=== PATIENT | male | born 1985 | race Hispanic/Latino ===

== ENCOUNTER 2022-08-25 17:15 | Emergency (ER) | payer SELFPAY ==
[2022-08-25 18:16] LABS: #Basophils 0.1 10x3/uL (0.0-0.2); #Eosinphils 0.2 10x3/uL (0.0-0.5); #Monocytes 0.8 10x3/uL (0.0-1.1); #Neutrophils 11.6 10x3/uL (1.5-8.4); %Basophils 0.7 % (0.0-2.0); %Eosinophils 1.3 % (0.0-6.0); %Lymphocytes 15.4 % (18.0-47.0); %Monocytes 5.5 % (0.0-10.0); %Neutrophils 76.8 % (40.0-75.0); Hemoglobin 16.4 g/dL (13.5-17.5); Mean Corpuscular HGB CONC 34.2 g/dL (32.0-36.0); Mean Corpuscular Hemoglobin 29.7 pg (27.0-33.0); Mean Corpuscular Volume 86.6 fl (81.2-95.1); Mean Platelet Volume 11.7 fl (7.4-10.4); Platelet Count 255 10x3/uL (150-450); Red Blood Cell (RBC) Count 5.53 10x6/uL (4.32-5.72); White Blood Cell (WBC) Count 15.2 10x3/uL (3.5-10.5)
[2022-08-25] MEDS ORDERED: Ondansetron PF 4 MG/2 ML Vial ONE (18:17)
[2022-08-25 18:31] LABS: ALT (SGPT) 38 U/L (8-55); AST (SGOT) 24 U/L (5-34); Albumin 4.6 g/dL (3.5-5.0); Alkaline Phosphatase 119 U/L (40-110); Anion Gap 12 mmol/L (10-20); BUN (Urea Nitrogen) 13 mg/dL (8.9-20.6); Bilirubin, Total 0.4 mg/dL (0.2-1.2); Calc. Creatinine Clearance 0 mL/min (70-130); Calcium 9.8 mg/dL (7.8-10.44); Carbon Dioxide 26 mmol/L (22-29); Chloride 106 mmol/L (98-107); Estimated GFR 108; Globulin 3.1 g/dL (2.4-3.5); Glucose 110 mg/dL (70-105); Potassium 4.1 mmol/L (3.5-5.1); Protein, Total 7.7 g/dL (6.0-8.3); Sodium 140 mmol/L (136-145)
[2022-08-25] MEDS ORDERED: Ketorolac Tromethamine 30 MG/ML VIAL ONE (19:58)
== END 2022-08-25 20:20 | disposition home or self-care (01) ==
LOC: CSHERS 17:15
DX: S06.9X9A Unspecified intracranial injury with loss of consciousness of unspecified duration, initial encounter (principal); W11.XXXA Fall on and from ladder, initial encounter
CPT/HCPCS: 70450; 71045; 72125; 72131; 80053; 84484; 85025; 93005; 96374; 96375; J1885; J2405